=== PATIENT | male | born 1955 | race Caucasian/White ===

== ENCOUNTER → 2016-10-05 | Outpatient (CLI) | payer OTHER ==
--- NOTE | 2016-10-05 17:06 | CT ---
CT Scan of the Right Lower Extremity (Preop Right Knee Makoplasty) Clinical History: 60-year-old male with a history of right knee osteoarthritis, anticipating a Makop lasty. ICD-10 Diagnostic Code: M17.9. Technique: A multidetector unenhanced helical CT scan was obtained from the caudal aspect of the rig ht sacroiliac joint through the proximal right femoral diaphysis, subsequently from the distal right femoral diaphysis through the proximal 1/3rd tibial diaphysis, and then from the distal tibial and fi bular diaphyses through the right hindfoot. Images of the right hip are reformatted at 2.50-mm incre ments, the right knee at 0.625-mm increments, and of the right ankle at 2.50-mm increments. Parasagi ttal and paracoronal reconstructed images of the right knee were obtained. The DFOV is 32 cm. Image s are evaluated in soft tissue and bone windows. Comparison Studies: MR imaging of the right knee dated September 21, 2013, and CT imaging of the pelvi s dated April 17, 2012. Findings: CT Scan of the Right Pelvis: The femoral head is well-seated within the acetabulum. There are some implant radiation seeds at the level of the prostate gland. CT Scan of the Right Knee: There is a moderate-sized suprapatellar joint effusion. There is moderat e-to-severe medial femoral-tibial compartment narrowing, with some subchondral sclerosis present. De generative osteophytes are noted. There is some mild patellofemoral joint space narrowing seen both medially and laterally, with some peripheral patellar degenerative spurs. There is a punctate loose osteochondral body seen on series 4, image 72, just above the medial tibial plateau. CT Scan of the Right Ankle: Age-appropriate change. Impression: [id number] medial femoral-tibial compartment degenerative osteoarthrosis, with a moderate-sized suprapatellar joint effusion.
== END ==
LOC: FIMAGING 15:26
PROVIDERS: ATTEND Orthopaedic Surgery
DX: M17.11 Unilateral primary osteoarthritis, right knee (principal); M25.461 Effusion, right knee

== ENCOUNTER 2016-10-21 06:00 | Observation (INO) | payer OTHER ==
[~2016-10-21 06:00] MED LIST: ACETAMINOPHEN 325 MG TAB PO ONE; CEFAZOLIN 2 GM/DEXTR 100 ML IV ONE; CHLORHEXIDINE GLUC HIBICLENS 118 ML BTL TP ONE; DEXAMETHASONE 4 MG/ML VIAL IVP ONE; FAMOTIDINE 20 MG TAB PO ONE; ROPI/epiNEPH/KETOROLAC JOINT COCKTAIL IU ONE; TRANEXAMIC ACID 3,000 MG in NS 50 ML IRR ONE
[2016-10-21] MEDS ORDERED: LIDOCAINE 1% 5 ML SDV ID PRN (06:30)
[2016-10-21] MEDS ORDERED: LR 1,000 ML IV ONE (06:30)
[2016-10-21] MEDS ORDERED: ACETAMINOPHEN 325 MG TAB ONE (06:37)
[2016-10-21] MEDS ORDERED: TRANEXAMIC ACID 3,000 MG/50 ML BAG IRR ONE (06:54)
[2016-10-21] MEDS ORDERED: VANCOMYCIN 1 GM VIAL IV ONE (06:54)
[2016-10-21] MEDS ORDERED: SKIN ADHESIVE (DERMABOND) 1 EACH TP ONE (06:54)
[2016-10-21] MEDS ORDERED: MIDAZOLAM 2 MG/2 ML VIAL ONE (07:54)
[2016-10-21] MEDS ORDERED: fentaNYL 100 MCG/2 ML INJ ONE (07:57)
[2016-10-21] MEDS ORDERED: PROPOFOL/EMULSION 500 MG/50 ML BOTTLE IV ONE (07:58)
[2016-10-21] MEDS ORDERED: LIDOCAINE 2% 100 MG/5 ML SYR IVP ONE (08:19)
[2016-10-21] MEDS ORDERED: ROPIVACAINE HCL 150 MG/30 ML INJ ONE (08:34)
[2016-10-21] MEDS ORDERED: clonIDINE 1 MG/10 ML VIAL EP ONE (08:35)
[2016-10-21] MEDS ORDERED: ONDANSETRON 4 MG/2 ML VIAL IVP PRN (09:27)
[2016-10-21] MEDS ORDERED: BISACODYL 10 MG SUPP PR PRN (09:27)
[2016-10-21] MEDS ORDERED: DIPHENOXYLATE/ATROPINE LOMOTIL 1 TAB PO PRN (09:27)
[2016-10-21] MEDS ORDERED: PROMETHAZINE HCL 25 MG SUPPR PR PRN (09:27)
[2016-10-21] MEDS ORDERED: diphenhydrAMINE 25 MG CAP PO PRN (09:27)
[2016-10-21] MEDS ORDERED: POLYETHYLENE GLYCOL 3350 17 GM PKT PO PRN (09:27)
[2016-10-21] MEDS ORDERED: CYCLOBENZAPRINE 10 MG TAB PO PRN (09:27)
[2016-10-21] MEDS ORDERED: TEMAZEPAM 15 MG CAP PO PRN (09:27)
[2016-10-21] MEDS ORDERED: ONDANSETRON DISINTEGRATING 4 MG TAB PO PRN (09:27)
[2016-10-21] MEDS ORDERED: MAGNESIUM HYDROXIDE 30 ML UDCUP PO PRN (09:27)
[2016-10-21] MEDS ORDERED: PROMETHAZINE HCL 25 MG/ML INJ IVP PRN (09:27)
[2016-10-21] MEDS ORDERED: PHARMACY PAIN CONSULT 1 EA MISC PRN (09:27)
[2016-10-21] MEDS ORDERED: METOCLOPRAMIDE 10 MG/2 ML VIAL IVP PRN (09:27)
[2016-10-21] MEDS ORDERED: LACTULOSE 20 GM/30 ML UDCUP PO PRN (09:27)
--- NOTE | 2016-10-21 09:28 | POSTOPPROG ---
Post Op Note Date of Operation: 10/21/16 Surgeon: Tarun Morris Landscape Supervisor: carter morris Anesthesiologist: dr. moss Anesthesia: Spinal, Other (Specify) (adductor canal block) Pre-op Diagnosis: right knee OA Post-op Diagnosis: same Indication: right knee pain due to OA that failed conservative measures Procedure: R medial partial knee arthroplasty robot assisted Findings: severe medial knee OA Inf/Abcess present in the surg proc area at time of surgery?: No EBL: 50-100
[2016-10-21] MEDS ORDERED: LR 1,000 ML IV SCH (09:30)
[2016-10-21] MEDS: ACETAMINOPHEN 325 MG TAB PO SCH ×4 (13:09→23:20)
[2016-10-21] MEDS ORDERED: ceFAZolin 2 GM/DEXTROSE 100 ML IV SCH (14:00)
[2016-10-21] MEDS: ceFAZolin 2 GM in D5W 100 ML IV SCH ×2 (14:36→21:33)
[2016-10-21] MEDS ORDERED: WARFARIN SODIUM 5 MG TAB PO SCH (16:00)
[2016-10-21] MEDS: FAMOTIDINE 20 MG TAB PO SCH (19:57)
[2016-10-21] MEDS: SENNOSIDES/DOCUSATE SODIUM TAB PO SCH (19:58)
[2016-10-22] MEDS: oxyCODONE IR 5 MG TAB PO PRN ×3 (03:07→11:58)
[2016-10-22] MEDS: ACETAMINOPHEN 325 MG TAB PO SCH ×2 (05:13→11:59)
[2016-10-22 05:44] LABS: HEMATOCRIT 42.2 % (40.0-51.0); HEMOGLOBIN 14.7 g/dL (13.7-17.5)
[2016-10-22 06:00] LABS: INR 1.06 (0.83-1.16); PROTIME(PATIENT) 13.7 SEC (12.0-15.0)
[2016-10-22 08:00] VITALS: BP 114/67; PULSE 52; RESP 18; TEMP 98.5; O2SAT 96
[2016-10-22] MEDS: SENNOSIDES/DOCUSATE SODIUM TAB PO SCH (08:02)
[2016-10-22] MEDS: FAMOTIDINE 20 MG TAB PO SCH (08:03)
[2016-10-22] MEDS ORDERED: ENOXAPARIN 40 MG/0.4 ML SYR SC SCH (09:00)
--- NOTE | 2016-10-22 09:03 | SOAPPROG ---
SOAP Progress Note Assessment/Plan: Assessment: Patient is doing well POD 1 s/p R med MPL 1.Pain management: pain is well controlled on oral pain meds 2.VTE ppx: recommend coumadin and lovenox. Cont LAURA hose and SCD 3. d/c planning: d/c to home today pending release from PT. Plan: 10/22/16 09:02 10/22/16 09:03 Subjective: Derian is doing well this morning, denies SOB, chest pain and N/V. Objective: Vital Signs Temp Pulse Resp BP Pulse Ox 36.9 C 52 L 18 114/67 96 10/22/16 07:59 10/22/16 07:59 10/22/16 07:59 10/22/16 07:59 10/22/16 07:59 Laboratory Results 10/22/16 04:16 10/21/16 10/22/16 10/23/16 05:59 05:59 05:59 Intake Total 2738 Output Total 2440 Balance 298 PT 13.7 SEC (12.0-15.0) 10/22/16 04:16 INR 1.06 (0.83-1.16) 10/22/16 04:16 RLE: incision dressing is clean and dry, NVI, +pf/df ICD10 Worksheet Patient Problems: Problems Problem Status Onset Primary localized osteoarthritis of right knee Acute
--- NOTE | 2016-10-22 10:16 | GDS ---
[f rep st] DISCHARGE SUMMARY ADMISSION DIAGNOSIS: Right knee osteoarthritis. DISCHARGE DIAGNOSIS: Right knee osteoarthritis. PROCEDURE: Right partial knee arthroplasty, robot assisted. VTE PROPHYLAXIS: Coumadin and Lovenox recommended. BRIEF DESCRIPTION OF HOSPITAL STAY: Patient was admitted for an elective joint arthroplasty. The p atient tolerated the procedure well and has passed physical therapy. The patient was given appropri ate antibiotic prophylaxis and venous thromboembolism prophylaxis. The patient's pain was well cont rolled on oral pain medication, patient was holding down food, and had urinated. Decision was made to discharge the patient. The patient was given post-operative prescriptions pre-operatively. PLAN: Please follow up as scheduled in Dr. Laurent's office on November 10 at 11:30 a.m. /[id number]/MODL
--- NOTE | 2016-10-22 14:58 | GOP ---
[f rep st] OPERATIVE REPORT DATE OF OPERATION: 10/21/2016 SURGEON: Sonny Laurent MD FOUNDATION STAGE TEACHER: BIANCA Couch. ANESTHESIA: Spinal. PREOPERATIVE DIAGNOSIS: Right knee osteoarthritis. POSTOPERATIVE DIAGNOSIS: Right knee osteoarthritis. PROCEDURE PERFORMED: Right medial compartment partial knee replacement with computer navigation and robotic assist. FINDINGS/PATHOLOGY: Severe medial compartment osteoarthritis. INDICATIONS: This is a 60-year-old male, with progressive pain of the right knee unresponsive to conservative care. Risks and benefits of surgical intervention were explained in detail. DESCRIPTION OF PROCEDURE: The patient was brought to the operating room and placed on the table in supine position. Spinal anesthesia was induced without difficulty. A pneumatic tourniquet was applied about the right proximal thigh and the leg was prepped and draped in sterile fashion. Attention was turned first to the distal aspect of the right femur. At 3 cm proximal to the lateral rise of the femur, 2 percutaneous half pins were placed for fixation of the femoral array. In a similar fashion, 2 pins were placed anterolateral on the tibia for fixation of the tibial array. External land marking and registration of the hip center was performed without difficulty. After exsanguination by elevation, the tourniquet was inflated to 250 mmHg. Incision was made from the tibial tuberosity to the superior pole of the patella. Dissection was carried out through the subcutaneous tissue to the deep fascia using Bovie electrocautery for hemostasis. Medial parapatellar arthrotomy was carried out to the superior pole of the patella. The medial collateral ligament was elevated and the infrapatellar fat pad was resected. Internal femoral and tibial registration was carried out without difficulty and the femoral and tibial checkpoints were placed and verified for accuracy. Attention was turned to the femur. The foot print for the size 4 femoral component was cut with the 6 mm bur using the [employer] robotic system and verified for accuracy against the CT based plan. The hole was cut for the femoral post. In a similar fashion, the 6 mm bur was used to cut the foot print for the size 4 tibial component using the [employer] system and verified for accuracy against the CT based plan. Attention was turned to the posterior aspect of the knee and remnants of the medial meniscus were excised. The posterior capsule was injected with ropivacaine, epinephrine and Toradol. Trial reduction was carried out and there was excellent range of motion, alignment and stability using the size 4 femoral component and the size 4 tibial component, 4 x 8 mm polyethylene. All trials were then removed. The joint was thoroughly irrigated and carefully dried. One package of cement and 1 gram of vancomycin were mixed in the vacuum mixer and placed on the fixation surfaces of all components. The components were implanted and all excess cement was thoroughly removed. Implant placement was verified against the CT view plan and found to be excellent. The tourniquet was deflated and all bleeders were coagulated. The wound was thoroughly irrigated and closed using interrupted sutures of 2-0 Vicryl for the joint capsule. The subcu was closed with 3-0 Vicryl and the skin with 4-0 Monocryl. Dermabond and Steri-Strips were applied, followed by a compressive dressing. The patient was then moved from the operating room to the recovery room in good condition, having tolerated the procedure well. CASE CLASSIFICATION: Clean. /[id number]/MODL MTDD
== END 2016-10-22 12:11 | disposition home or self-care (01) ==
LOC: F3N 06:00 → INTOOBSV 06:00 → F3N 14:08
PROVIDERS: ADMIT Orthopaedic Surgery; ATTEND Orthopaedic Surgery
PROC: 8E0YXBZ Computer Assisted Procedure of Lower Extremity (ICD-10-PCS; principal; 2016-10-21 08:15)
PROC: 0SRC0JZ Replacement of Right Knee Joint with Synthetic Substitute, Open Approach (ICD-10-PCS; principal; 2016-10-21 08:15)
DX: M17.11 Unilateral primary osteoarthritis, right knee (principal); M25.561 Pain in right knee; G47.33 Obstructive sleep apnea (adult) (pediatric); Z79.01 Long term (current) use of anticoagulants
CPT/HCPCS: 20985; 27446; 73560; 97110; 97116; 97161; 97165; G0378; G8978; G8979; G8980; C1713; J0171; J0690; J0735; J1100; J1650; J1885; J2001; J2250; J2704; J2795; J3010; J3370

== ENCOUNTER 2017-09-20 11:09 | Emergency (ER) | payer OTHER ==
[2017-09-20 11:32] VITALS: TEMP 98.4; O2SAT 93
--- NOTE | 2017-09-20 12:15 | EDPHY ---
General - History Smoking Status: Never smoked Narrative: CHIEF COMPLAINT: Heart racing and fluttering HISTORY OF PRESENT ILLNESS: Patient complains of his heart "racing or fluttering." This is intermittent. Has been present for "quite a while" with increasing frequency over the past month. It tends to happen worse when he sits down to watch television when he goes to bed. It is currently not present. Is otherwise hard to predict. It is mild to moderate. No pain with this at any point in time. No shortness of breath but he does feel it racing. No nausea bowel. No diaphoresis. No trauma or injury. No syncope or lightheadedness. No dizziness. No evaluation thus far. No other associated complaints or modifying factors. REVIEW OF SYSTEMS: Ten systems reviewed and are negative unless otherwise noted in the HPI PCP: Dr. Dove SPECIALISTS: Urologist at [facility] for prostate cancer PAST MEDICAL HISTORY: Prostate cancer, osteoarthritis PAST SURGICAL HISTORY: Right knee surgery 2017 SOCIAL HISTORY: Nonsmoker. Occasional alcohol. No drug use. Works as an electrical injured air with [employer] FAMILY HISTORY: Noncontributory EXAMINATION General Appearance: Alert, no distress Head: normocephalic, atraumatic Eyes: Pupils equal and round, no conjunctival pallor or injection ENT, Mouth: Mucous membranes moist. airway patent Neck: Normal inspection, supple, non-tender Respiratory: Lungs are clear to auscultation. no wheezing, rhonchi or crackles. Cardiovascular: Regular rate and rhythm. no murmur Gastrointestinal: Abdomen is soft and nontender Back: non-tender, no bony abnormalities Neurological: A&O, nonfocal, normal gait Skin: Warm and dry, no rash no petechiae or purpura Extremities: Nontender, no pedal edema Psychiatric: Mood and affect normal DIFFERENTIAL DIAGNOSES: Including but not limited to paroxysmal flutter, paroxysmal fib, palpitation, dehydration, thyroid dysfunction MDM: 12:20 p.m. Intermittent flutter/palpitation sensation over the past month with increasing frequency recently. No chest pain. No shortness of breath. Vital signs are stable and he is asymptomatic at time of my examination. I have ordered EKG, laboratory studies, statistics tutor. He is resting comfortably in no acute distress. 12:30 p.m. EKG reveals sinus rhythm without ischemia. 12:58 p.m. Laboratory studies thus far negative. TSH and troponin are pending. No acute distress. 1:58 p.m. Laboratory studies are all negative. Chest x-ray is clear. No events on the statistics tutor during admission to the ED. I have re-evaluated the patient at this time. He is resting comfortably in no acute distress. No symptoms during his emergency department stay. 2:30 p.m. Patient has been evaluated by Dr. Corbin. We discussed discharge home with follow up with primary care physician and his established inventory control clerk Dr. Dee. We discussed ED precautions for worsening symptoms, lightheadedness, dizziness, syncope or any chest pain of any kind. Patient is in agreement with this plan. EKG interpretation: Dr. Corbin Sinus rhythm, rate 59 beats per minute. No ischemia SUPERVISION: Patient was evaluated and examined in conjunction with my secondary supervising physician as documented. We have both examined the patient. (Tad Che) I have evaluated and participated in the management of this patient. My co- signature indicates that I have reviewed this chart and that I agree with the findings and the plan of care as documented. My personal history and physical findings include: 61-year-old male with intermittent palpitations that have increasing in frequency. He feels as if his heart is racing or perhaps skipping a beat. He does not have chest pain. He is not short of breath. He is not currently experiencing these symptoms. On examination is heart is regular without murmur, rub, or gallop. Lungs are clear. Abdomen is soft and nontender. There is no jugular venous distension. I have reviewed his EKG and his labs. I do not think that he needs further emergency department evaluation. He is referred to primary care physician and Cardiology. Danger signs reviewed with him. (Julia Corbin) - Diagnostics EKG Interpretation: 12 lead EKG is interpreted in Trace master View by emergency department physician. (Julia Corbin) - Objective Vital Signs: Initial Vital Signs Temperature (C) 36.9 C 09/20/17 11:28 Heart Rate 71 09/20/17 11:28 Respiratory Rate 18 09/20/17 11:28 Blood Pressure 143/94 H 09/20/17 11:28 O2 Sat (%) 93 09/20/17 11:28 O2 Delivery Mode Room Air Allergies/Adverse Reactions: No Known Allergies Allergy (Verified 04/17/12 19:21) Home Medications: Medication Instructions Recorded Cholecalciferol Vit D3 [Vitamin D3 1,000 units PO DAILY 10/02/16 (*)] Fexofenadine HCl [Rhoda Allergy] 60 mg PO DAILY PRN 10/02/16 Herbals/Supplements -Info Only 1 ea PO DAILY 10/02/16 Triamcinolone Acetonide [Nasacort] 1 spray EACHNARE DAILY PRN 10/02/16 Acetaminophen [Tylenol 325mg (*)] 650 mg PO Q6HRS #0 tab 10/22/16 Enoxaparin [Lovenox 40 MG (*)] 40 mg SC DAILY #4 syr 10/22/16 Sennosides/Docusate Sodium 1 - 2 tab PO BID #0 tab 10/22/16 [Senokot-S] Warfarin Sodium [Coumadin 5MG (*)] 5 mg PO DAILY AT 4PM #20 tab 10/22/16 celeCOXIB [Celebrex (*)] 200 mg PO DAILY #0 cap 10/22/16 oxyCODONE IR [Oxycodone Ir (*)] 5 - 10 mg PO Q3HRS PRN #120 tab 10/22/16 Laboratory Results: Laboratory Results 09/20/17 12:33 09/20/17 12:33 Departure - Departure Disposition: Home, Routine, Self-Care Clinical Impression: Palpitations Condition: Good Instructions: Heart Palpitations (ED) Additional Instructions: 1. Contact your primary care physician and inventory control clerk as discussed 2. ED precautions for chest pain, worsening symptoms, lightheadedness or syncope Referrals: Angelina Dove MD [Primary Care Provider] - As per Instructions Nahun Dee MD [Medical Doctor] - As per Instructions
--- NOTE | 2017-09-20 12:30 | CPEKG ---
Heart Rate: 59 RR Interval: 1017 P-R Interval: 176 QRSD Interval: 88 QT Interval: 416 QTC Interval: 413 P [place]: 25 QRS [place]: 15 T Wave [place]: 34 EKG Severity - NORMAL ECG - EKG Impression: SINUS RHYTHM Electronically Signed By: Julia Corbin 20-Sep-2017 15:18:20
[2017-09-20 12:42] LABS: PLATELET COUNT 189 10^3/uL (150-400)
[2017-09-20 12:51] LABS: INR 0.98 (0.83-1.16); PROTIME(PATIENT) 13.2 SEC (12.0-15.0)
[2017-09-20 14:21] VITALS: BP 129/79; PULSE 70; RESP 16
== END 2017-09-20 14:45 | disposition home or self-care (01) ==
DX: R00.2 Palpitations (principal); Z79.01 Long term (current) use of anticoagulants; Z85.46 Personal history of malignant neoplasm of prostate

== ENCOUNTER 2017-12-20 | Emergency (ER) | payer OTHER ==
--- NOTE | 2017-12-20 00:12 | CPEKG ---
Heart Rate: 69 RR Interval: 870 P-R Interval: 184 QRSD Interval: 94 QT Interval: 380 QTC Interval: 407 P [place]: 35 QRS [place]: 16 T Wave [place]: 20 EKG Severity - NORMAL ECG - EKG Impression: SINUS RHYTHM Electronically Signed By: Sunshine Esposito 20-Dec-2017 07:10:28
[2017-12-20] MEDS ORDERED: ASPIRIN 81 MG CHEWABLE TAB PO ONE (00:14)
--- NOTE | 2017-12-20 00:22 | EDPHY ---
General - History Smoking Status: Never smoked Time Seen by Provider: 12/20/17 00:19 Narrative: CHIEF COMPLAINT: Chest pain HISTORY OF PRESENT ILLNESS: Patient complains of chest pain that started around 10:30 p.m.. This is right- sided chest pain. He was awake when this occurred. It is described as an aching pain that "was concerning." No worse with exertion. Seems to radiate only to the other right side of the chest. No shortness of breath, cough or fever. No abdominal pain. No trauma or recent travel or surgery. No history of venous thrombolic event. No coronary artery disease. He has had some palpitations with no definitive diagnosis. No catheterization or stress test since 2009. No other associated complaints or modifying factors. REVIEW OF SYSTEMS: Ten systems reviewed and are negative unless otherwise noted in the HPI PCP: Dr. Dove SPECIALISTS: Bull Chain Operator Dr. Dee PAST MEDICAL HISTORY: BPH, osteoarthritis, prostate cancer, nephrolithiasis, palpitations PAST SURGICAL HISTORY: Bilateral knee surgeries, prostate surgery SOCIAL HISTORY: Never smoker. Occasional alcohol use. No drug use. Works as a software release manager FAMILY HISTORY: Noncontributory EXAMINATION General Appearance: Alert, no distress. Well developed and well nourished. Well appearing. Head: normocephalic, atraumatic Eyes: Pupils equal and round, no conjunctival pallor or injection ENT, Mouth: Mucous membranes moist Neck: Normal inspection, supple, non-tender Respiratory: Lungs are clear to auscultation Cardiovascular: Regular rate and rhythm. No murmur. Gastrointestinal: Abdomen is soft and nontender Back: non-tender, no bony abnormalities Neurological: A&O, nonfocal, normal gait Skin: Warm and dry, no rash. No petechiae or purpura Extremities: Nontender, no pedal edema Psychiatric: Mood and affect normal DIFFERENTIAL DIAGNOSES: Including but not limited to ACS, acid reflux, peptic ulcer disease, PE, pneumonia, pleurisy, pneumonitis MDM: 12:20 a.m. Right-sided chest pain of 2 hr duration. His vital signs are within normal limits with exception of minimally decreased pulse oximetry at times. This is intermittent. The lowest value appreciated was 88% on room air. He then quickly improved to 94 to 95% on room air. He is in no acute distress. His EKG is unremarkable for ischemia. I have ordered D-dimer and he remains on a cardiac cath lab manager with chest x-ray pending. He is in no acute distress. 1:20 a.m. At this time I have discussed the case with Dr. Esposito. She will assume care the patient at this time. His initial troponin is negative. His D-dimer is negative. He is in no acute distress. Please see her note for final disposition. EKG interpretation: Dr. Esposito Normal sinus rhythm. No ischemia SUPERVISION: Patient was evaluated and examined in conjunction with my secondary supervising physician as documented. We have both examined the patient. (Tad Che) Repeat troponin was again negative. His oxygen saturations have remained normal. EKG was reviewed and shows a normal sinus rhythm with no ischemic changes. The patient had no recurrence of his chest pain. His heart score was calculated at 2. He feels well enough to go home and will be discharged with follow up with his primary outboard motorboat rigger Dr. Dee. The patient is happy with this plan and will return if his pain is worse in any way. (Sunshine Esposito) - Objective Vital Signs: Initial Vital Signs Temperature (C) 36.6 C 12/20/17 00:05 Heart Rate 77 12/20/17 00:05 Respiratory Rate 16 12/20/17 00:05 Blood Pressure 127/86 H 12/20/17 00:05 O2 Sat (%) 91 L 12/20/17 00:05 O2 Delivery Mode Room Air Allergies/Adverse Reactions: No Known Allergies Allergy (Verified 04/17/12 19:21) Home Medications: Medication Instructions Recorded Cholecalciferol Vit D3 [Vitamin D3 1,000 units PO DAILY 10/02/16 (*)] Fexofenadine HCl [Rhoda Allergy] 60 mg PO DAILY PRN 10/02/16 Herbals/Supplements -Info Only 1 ea PO DAILY 10/02/16 Triamcinolone Acetonide [Nasacort] 1 spray EACHNARE DAILY PRN 10/02/16 Acetaminophen [Tylenol 325mg (*)] 650 mg PO Q6HRS #0 tab 10/22/16 Enoxaparin [Lovenox 40 MG (*)] 40 mg SC DAILY #4 syr 10/22/16 Sennosides/Docusate Sodium 1 - 2 tab PO BID #0 tab 02/16/17 [Senokot-S] Warfarin Sodium [Coumadin 5MG (*)] 5 mg PO DAILY AT 4PM #20 tab 10/22/16 celeCOXIB [Celebrex (*)] 200 mg PO DAILY #0 cap 10/22/16 oxyCODONE IR [Oxycodone Ir (*)] 5 - 10 mg PO Q3HRS PRN #120 tab 10/22/16 Laboratory Results: Laboratory Results 12/20/17 00:17 12/20/17 00:17 12/20/17 12/20/17 12/20/17 02:40 00:17 00:17 WBC RBC Hgb Hct MCV MCH MCHC RDW Plt Count MPV Neut % (Auto) Lymph % (Auto) Stanton % (Auto) Eos % (Auto) Baso % (Auto) Nucleat RBC Rel Count Absolute Neuts (auto) Absolute Lymphs (auto) Absolute Monos (auto) Absolute Eos (auto) Absolute Basos (auto) Absolute Nucleated RBC Immature Gran % Immature Gran # D-Dimer < 0.27 ug/mLFEU ug/mLFEU (0.00-0.50) Sodium 143 mEq/L mEq/L (135-145) Potassium 4.2 mEq/L mEq/L (3.5-5.2) Chloride 105 mEq/L mEq/L (97-110) Carbon Dioxide 25 mEq/l mEq/l (22-31) Anion Gap 13 mEq/L mEq/L (8-16) BUN 28 mg/dL H mg/dL (7-23) Creatinine 1.0 mg/dL mg/dL (0.7-1.3) Estimated GFR > 60 Glucose 88 mg/dL mg/dL (70-100) Calcium 10.3 mg/dL mg/dL (8.5-10.4) Troponin I < 0.012 ng/mL ng/mL < 0.012 ng/mL ng/mL (0.000-0.034) (0.000-0.034) 12/20/17 00:17 WBC 7.69 10^3/uL 10^3/uL (3.80-9.50) RBC 5.05 10^6/uL 10^6/uL (4.40-6.38) Hgb 16.0 g/dL g/dL (13.7-17.5) Hct 45.9 % % (40.0-51.0) MCV 90.9 fL fL (81.5-99.8) MCH 31.7 pg pg (27.9-34.1) MCHC 34.9 g/dL g/dL (32.4-36.7) RDW 13.2 % % (11.5-15.2) Plt Count 221 10^3/uL 10^3/uL (150-400) MPV 10.9 fL fL (8.7-11.7) Neut % (Auto) 66.7 % % (39.3-74.2) Lymph % (Auto) 21.3 % % (15.0-45.0) Stanton % (Auto) 9.9 % % (4.5-13.0) Eos % (Auto) 1.4 % % (0.6-7.6) Baso % (Auto) 0.4 % % (0.3-1.7) Nucleat RBC Rel Count 0.0 % % (0.0-0.2) Absolute Neuts (auto) 5.13 10^3/uL 10^3/uL (1.70-6.50) Absolute Lymphs (auto) 1.64 10^3/uL 10^3/uL (1.00-3.00) Absolute Monos (auto) 0.76 10^3/uL 10^3/uL (0.30-0.80) Absolute Eos (auto) 0.11 10^3/uL 10^3/uL (0.03-0.40) Absolute Basos (auto) 0.03 10^3/uL 10^3/uL (0.02-0.10) Absolute Nucleated RBC 0.00 10^3/uL 10^3/uL (0-0.01) Immature Gran % 0.3 % % (0.0-1.1) Immature Gran # 0.02 10^3/uL 10^3/uL (0.00-0.10) D-Dimer Sodium Potassium Chloride Carbon Dioxide Anion Gap BUN Creatinine Estimated GFR Glucose Calcium Troponin I Medications Given: Discontinued Medications Aspirin (Aspirin) 243 mg PO EDNOW ONE Stop: 12/20/17 00:15 Last Admin: 12/20/17 00:17 Dose: 243 mg Departure - Departure Disposition: Home, Routine, Self-Care Clinical Impression: Chest pain Qualifiers: Chest pain type: unspecified Qualified Code(s): R07.9 - Chest pain, unspecified Condition: Good Instructions: Chest Pain (ED) Additional Instructions: Please return to the emergency department if your chest pain returns in any way. Otherwise, I would like for you to call Dr. Parry's office this morning to arrange for a follow-up appointment. You may need a stress test. Referrals: Angelina Dove MD [Primary Care Provider] - As per Instructions Nahun Dee MD [Medical Doctor] - As per Instructions
[2017-12-20 00:46] LABS: PLATELET COUNT 221 10^3/uL (150-400)
[2017-12-20 04:00] VITALS: BP 132/86
== END 2017-12-20 04:00 | disposition home or self-care (01) ==
DX: R07.9 Chest pain, unspecified (principal); Z79.01 Long term (current) use of anticoagulants; Z85.46 Personal history of malignant neoplasm of prostate

== ENCOUNTER → 2018-06-26 | Outpatient (CLI) | payer OTHER | LOC: FIMAGING 10:06 | PROVIDERS: ATTEND Orthopaedic Surgery | DX: Z01.818 Encounter for other preprocedural examination (principal); M17.12 Unilateral primary osteoarthritis, left knee ==

== ENCOUNTER 2018-07-15 08:08 | Observation (INO) | payer OTHER ==
--- NOTE | 2018-07-15 06:39 | PDHPUP ---
History & Physical Update H&P update statement: This history and physical update is based on an assessment of the patient which was completed after admission or registration (within 24 hours), but prior to the surgery/procedure. H&P update: H&P reviewed & patient examined, no change in patient's condition since H&P completed
[~2018-07-15 08:08] MED LIST changes: -ACETAMINOPHEN 325 MG TAB PO ONE; -CEFAZOLIN 2 GM/DEXTR 100 ML IV ONE; -CHLORHEXIDINE GLUC HIBICLENS 118 ML BTL TP ONE; -DEXAMETHASONE 4 MG/ML VIAL IVP ONE; -FAMOTIDINE 20 MG TAB PO ONE; -ROPI/epiNEPH/KETOROLAC JOINT COCKTAIL IU ONE; +ROPIVACAINE 0.2% 80 MG, EPINEPHrine 0.2 MG, KETOROLAC TROMETHAMINE 30 MG in SYRINGE 0 ML IU ONE; +TRANEXAMIC ACID 3,000 MG in NS (SYRINGE) 50 ML IRR ONE; -TRANEXAMIC ACID 3,000 MG in NS 50 ML IRR ONE
[2018-07-15] MEDS ORDERED: TRANEXAMIC ACID 3,000 MG/50 ML BAG IRR ONE (08:25)
[2018-07-15] MEDS ORDERED: VANCOMYCIN 1 GM VIAL ONE (08:42)
[2018-07-15] MEDS ORDERED: LR 1,000 ML IV ONE (08:43)
[2018-07-15] MEDS ORDERED: ceFAZolin 2 GM/DEXTROSE 100 ML IV ONE ×3 (08:51→21:03)
[2018-07-15] MEDS ORDERED: FAMOTIDINE 20 MG TAB PO ONE ×2 (08:51→21:03)
[2018-07-15] MEDS ORDERED: ACETAMINOPHEN 325 MG TAB PO ONE ×2 (08:51→21:03)
[2018-07-15] MEDS ORDERED: DEXAMETHASONE 4 MG/ML VIAL IVP ONE ×2 (08:51→21:03)
--- NOTE | 2018-07-15 08:55 | PDANEPAE ---
ANE Past Medical History - Cardiovascular History Hx Hypertension: No Hx Arrhythmias: No Hx Chest Pain: Yes Hx Coronary Artery / Peripheral Vascular Disease: No Hx CHF / Valvular Disease: No Hx Palpitations: Yes Cardiovascular History Comment: 2018 cardiac workup for chest pain and palpatations negative for actual cardiac issue - states symptoms have since subsided anyway - Pulmonary History Hx COPD: No Hx Asthma/Reactive Airway Disease: Yes Hx Recent Upper Respiratory Infection: No Hx Oxygen in Use at Home: No Hx Sleep Apnea: Yes Sleep Apnea Screening Result - Last Documented: Positive Pulmonary History Comment: allergy induced asthma many years ago. mild SHARI - uses nighttime mouthpiece only - Neurologic History Hx Cerebrovascular Accident: No Hx Seizures: No Hx Dementia: No - Endocrine History Hx Diabetes: No - Renal History Hx Renal Disorders: Yes Renal History Comment: kidney stones. prostate CA - Liver History Hx Hepatic Disorders: No - Neurological & Psychiatric Hx Hx Neurological and Psychiatric Disorders: No - Cancer History Hx Cancer: Yes Cancer History Comment: prostate CA - Congenital Disorder History Hx Congenital Disorders: No - GI History Hx Gastrointestinal Disorders: Yes Gastrointestinal History Comment: mild acid reflux - takes OTC PRN rarely - Other Health History Other Health History: bilateral hearing aids. wears glasses. occasional eczema. osteoarthritis - Chronic Pain History Chronic Pain: Yes (left knee) - Surgical History Prior Surgeries: right partial knee, 2017. kidney stone removal x2 ANE Review of Systems Review of Systems: - Exercise capacity METS (RN): 4 METS ANE Patient History - Allergies Allergies/Adverse Reactions: No Known Allergies Allergy (Verified 06/22/18 12:05) - Home Medications Home Medications: Fexofenadine HCl [Rhoda Allergy] 60 mg PO DAILY PRN 10/02/16 [Last Taken 2 Weeks Ago ~10/07/16] Herbals/Supplements -Info Only 1 ea PO DAILY 10/02/16 [Last Taken 2 Weeks Ago ~ 10/07/16] Calcium Carbonate [Oyster Shell Calcium 500 mg (*)] 500 mg PO DAILY 06/06/18 [ Last Taken Unknown] Dutasteride [Avodart 0.5 MG (*)] 0.5 mg PO DAILY 06/06/18 [Last Taken Unknown] Multivitamins [Multivitamin (*)] 1 each PO DAILY 06/06/18 [Last Taken Unknown] - Smoking Hx Smoking Status: Never smoked - Family Anes Hx Family Hx Anesthesia Complications: none ANE Labs/Vital Signs - Vital Signs Height: 181.61 cm Weight: 92.986 kg ANE Physical Exam - Airway Mallampati Score: Class 2 ANE Anesthesia Plan Anesthesia Plan: spinal Regional Anesthesia: adductor canal FNB
[2018-07-15] MEDS ORDERED: CEFAZOLIN 2 GM/DEXTROSE/100 ML BAG IV ONE (08:58)
[2018-07-15] MEDS ORDERED: MIDAZOLAM 2 MG/2 ML VIAL ONE (09:01)
[2018-07-15] MEDS ORDERED: PROPOFOL/EMULSION 500 MG/50 ML BOTTLE IV ONE (09:02)
[2018-07-15] MEDS ORDERED: fentaNYL 100 MCG/2 ML INJ ONE (09:02)
[2018-07-15] MEDS ORDERED: ROPIVACAINE HCL 150 MG/30 ML INJ ONE (09:05)
--- NOTE | 2018-07-15 10:49 | POSTOPPROG ---
Post Op Note Date of Operation: 07/15/18 Surgeon: Tarun Morris Medication Technician: carter morris Anesthesiologist: dr. de la paz Anesthesia: Spinal, Other (Specify) (adductor canal block) Pre-op Diagnosis: left knee OA Post-op Diagnosis: same Indication: left knee pain Procedure: L med MPL robot assisted Findings: severe medial knee OA Inf/Abcess present in the surg proc area at time of surgery?: No EBL: 50-100
[2018-07-15] MEDS ORDERED: BISACODYL 10 MG SUPP PR PRN (10:50)
[2018-07-15] MEDS ORDERED: DIPHENOXYLATE/ATROPINE LOMOTIL 1 TAB PO PRN (10:50)
[2018-07-15] MEDS ORDERED: ONDANSETRON DISINTEGRATING 4 MG TAB PO PRN (10:50)
[2018-07-15] MEDS ORDERED: PROMETHAZINE HCL 25 MG/ML INJ IVP PRN (10:50)
[2018-07-15] MEDS ORDERED: CYCLOBENZAPRINE 10 MG TAB PO PRN (10:50)
[2018-07-15] MEDS ORDERED: diphenhydrAMINE 25 MG CAP PO PRN (10:50)
[2018-07-15] MEDS ORDERED: ONDANSETRON 4 MG/2 ML VIAL IVP PRN ×2 (10:50→11:00)
[2018-07-15] MEDS ORDERED: PROMETHAZINE HCL 25 MG SUPPR PR PRN (10:50)
[2018-07-15] MEDS ORDERED: LACTULOSE 20 GM/30 ML UDCUP PO PRN (10:50)
[2018-07-15] MEDS ORDERED: TEMAZEPAM 15 MG CAP PO PRN (10:50)
[2018-07-15] MEDS ORDERED: POLYETHYLENE GLYCOL 3350 17 GM PKT PO PRN (10:50)
[2018-07-15] MEDS ORDERED: MAGNESIUM HYDROXIDE 30 ML UDCUP PO PRN (10:50)
[2018-07-15] MEDS ORDERED: METOCLOPRAMIDE 10 MG/2 ML VIAL IVP PRN (10:50)
[2018-07-15] MEDS ORDERED: NALOXONE HCL 0.4 MG/ML INJ IVP PRN (11:00)
[2018-07-15] MEDS ORDERED: LR 500 ML IV PRN (11:00)
[2018-07-15] MEDS ORDERED: fentaNYL 100 MCG/2 ML INJ IVP PRN (11:00)
[2018-07-15] MEDS ORDERED: LR 1,000 ML IV SCH (11:00)
[2018-07-15] MEDS ORDERED: PHENYLEPHRINE HCL 100 MCG/ML SYR IVP PRN (11:00)
--- NOTE | 2018-07-15 11:01 | POSTANESTH ---
Post Anesthetic Evaluation Cardiovascular Status: Normal, Stable Respiratory Status: Normal, Stable Level of Consciousness/Mental Status: Can Participate in Eval Pain Control: Adequate, Prn Tx Ordered Nausea/Vomiting Control: Adequate, Prn Tx Ordered Complications Possibly Related to Anesthesia: None Noted
[2018-07-15] MEDS ORDERED: BUPIVACAINE/DEXTROSE 7.5MG/ML 2 ML SPINAL AMP SP ONE (13:21)
[2018-07-15] MEDS: ACETAMINOPHEN 325 MG TAB PO SCH ×2 (14:11→17:03)
[2018-07-15] MEDS: ceFAZolin 2 GM/DEXTROSE 100 ML IV SCH (17:02)
[2018-07-15] MEDS: ASPIRIN 81 MG CHEWABLE TAB PO SCH (21:08)
[2018-07-15] MEDS: SENNOSIDES/DOCUSATE SODIUM TAB PO SCH (21:10)
[2018-07-15] MEDS: FAMOTIDINE 20 MG TAB PO SCH (21:11)
[2018-07-15] MEDS: oxyCODONE IR 5 MG TAB PO PRN (21:12)
[2018-07-16] MEDS: ACETAMINOPHEN 325 MG TAB PO SCH ×2 (00:46→05:54)
[2018-07-16] MEDS: ceFAZolin 2 GM/DEXTROSE 100 ML IV SCH (00:46)
[2018-07-16] MEDS: oxyCODONE IR 5 MG TAB PO PRN (06:00)
[2018-07-16 07:54] VITALS: BP 107/62
[2018-07-16] MEDS ORDERED: DUTASTERIDE 0.5 MG CAP PO SCH (09:00)
[2018-07-16] MEDS: ASPIRIN 81 MG CHEWABLE TAB PO SCH (09:11)
[2018-07-16] MEDS: SENNOSIDES/DOCUSATE SODIUM TAB PO SCH (09:11)
[2018-07-16] MEDS: FAMOTIDINE 20 MG TAB PO SCH (09:11)
--- NOTE | 2018-07-16 11:42 | SOAPPROG ---
SOAP Progress Note Assessment/Plan: Assessment: Patient is doing well POD 1 s/p L med MPL Pain management: pain is well controlled on oral pain meds. VTE ppx: recommend aspirin daily for 3 weeks, cont LAURA and SCDs D/c planning: d/c to home today pending release from PT postop urinary retention: straight cath'd yesterday, resolved today Plan: 07/16/18 11:39 07/16/18 11:41 Subjective: patient is doing well, denies SOB, chest pain and N/v Objective: Vital Signs Temp Pulse Resp BP Pulse Ox 36.6 C 57 L 15 107/62 95 07/16/18 07:54 07/16/18 07:54 07/16/18 07:54 07/16/18 07:54 07/16/18 07:54 Laboratory Results 07/16/18 04:37 07/15/18 07/16/18 07/17/18 05:59 05:59 05:59 Intake Total 3492 Output Total 1655 Balance 1837 LLE; incision dressing is cleanand dry, NVI, +pf/df ICD10 Worksheet Patient Problems: Problems Problem Status Onset Primary localized osteoarthritis of left knee Acute Primary localized osteoarthritis of right knee Acute
--- NOTE | 2018-07-17 13:01 | GOP ---
DATE OF OPERATION: 07/15/2018 SURGEON: Sonny Laurent MD TOBACCO BUYER: Bryanna Laurent, BIANCA. ANESTHESIA: Spinal. ANESTHESIOLOGIST: Dr. Laurent. PREOPERATIVE DIAGNOSIS: Left knee osteoarthritis. POSTOPERATIVE DIAGNOSIS: Left knee osteoarthritis. PROCEDURE PERFORMED: HINA uni-knee. Left medial compartment partial knee replacement with computer navigation, robotic assist. FINDINGS: ESTIMATED BLOOD LOSS: 30 cc. INDICATIONS: This is a 62-year old gentleman with progressive pain of the left knee unresponsive to conservative care. Risks and benefits of surgical intervention were explained in detail. DESCRIPTION OF PROCEDURE: The patient was brought to the operating room and placed on the table in s upine position. Spinal anesthesia was induced without difficulty. A pneumatic tourniquet was applie d about the left proximal thigh and the leg was prepped and draped in sterile fashion. Attention was turned first to the distal aspect of the left femur. At 3 cm proximal to the lateral rise of the fe mur, 2 percutaneous half pins were placed for fixation of the femoral array. In a similar fashion, 2 pins were placed anterolateral on the tibia for fixation of the tibial array. External land marking and registration of the hip center was performed without difficulty. After exsanguination by elevation, the tourniquet was inflated to 50 mmHg. Incision was made from the tibial tuberosity to the superior pole of the patella. Dissection was car ried out through the subcutaneous tissue to the deep fascia using Bovie electrocautery for hemostasis . Medial parapatellar arthrotomy was carried out to the superior pole of the patella. The medial co llateral ligament was elevated and the infrapatellar fat pad was resected. Internal femoral and tibi al registration was carried out without difficulty and the femoral and tibial checkpoints were placed and verified for accuracy. Attention was turned to the femur. The foot print for the size 4 femoral component was cut with the 6 mm bur using the [employer] robotic system and verified for accuracy against the CT based plan. The hole was cut for the femoral post. In a similar fashion, the 6 mm bur was used to cut the foot print for t he size 4 tibial component using the [employer] system and verified for accuracy against the CT based plan. Attention was turned to the posterior aspect of the knee and remnants of the medial meniscus were exc ised. The posterior capsule was injected with ropivacaine, epinephrine and Toradol. Trial reduction was carried out and there was excellent range of motion, alignment and stability using the size 4 fe moral component and the size 4 tibial component. All trials were then removed. The joint was thoroughly irrigated and carefully dried. One package o f cement and 1 gram of vancomycin were mixed in the vacuum mixer and placed on the fixation surfaces of all components. The components were implanted and all excess cement was thoroughly removed. Impla nt placement was verified against the CT view plan and found to be excellent. The tourniquet was deflated and all bleeders were coagulated. The wound was thoroughly irrigated and closed using interrupted sutures of 2-0 Vicryl for the joint capsule. The subcu was closed with 3-0 Vicryl and the skin with 4-0 Monocryl. Dermabond and Steri-Strips were applied, followed by a compr essive dressing. The patient was then moved from the operating room to the recovery room in good con dition, having tolerated the procedure well. CASE CLASSIFICATION: Clean. /[id number]/MODL
--- NOTE | 2018-07-22 05:53 | GDS ---
ADMISSION DIAGNOSIS: Left knee osteoarthritis. DISCHARGE DIAGNOSIS: Left knee osteoarthritis. PROCEDURE: Left partial knee arthroplasty, medial compartment. VTE PROPHYLAXIS: Recommend aspirin 81 mg twice daily for 4 weeks. BRIEF DESCRIPTION OF HOSPITAL STAY: Patient was admitted for an elective joint arthroplasty. The pa adriannt tolerated the procedure well and has passed physical therapy. The patient was given appropriat e antibiotic prophylaxis and venous thromboembolism prophylaxis. The patient's pain was well control led on oral pain medication, patient was holding down food, and had urinated. Decision was made to d ischarge the patient. The patient was given post-operative prescriptions pre-operatively. PLAN: To follow up as scheduled with Dr. Laurent's office August 04 at 11 a.m. /[id number]/MODL
== END 2018-07-16 12:09 | disposition home or self-care (01) ==
LOC: F3E 08:08 → F3N 14:03
PROVIDERS: ADMIT Orthopaedic Surgery; ATTEND Orthopaedic Surgery
PROC: 8E0YXCZ Robotic Assisted Procedure of Lower Extremity (ICD-10-PCS; principal; 2018-07-15 10:00)
PROC: 0SRD0J9 Replacement of Left Knee Joint with Synthetic Substitute, Cemented, Open Approach (ICD-10-PCS; principal; 2018-07-15 10:00)
PROC: 8E0YXBZ Computer Assisted Procedure of Lower Extremity (ICD-10-PCS; principal; 2018-07-15 10:00)
DX: M17.12 Unilateral primary osteoarthritis, left knee (principal); R33.9 Retention of urine, unspecified; J45.909 Unspecified asthma, uncomplicated; G47.33 Obstructive sleep apnea (adult) (pediatric); Z85.46 Personal history of malignant neoplasm of prostate; Z87.442 Personal history of urinary calculi
CPT/HCPCS: 20985; 27446; 73560; 97116; 97161; 97530; G0378; G8978; G8979; G8980; C1713; J0171; J0690; J1100; J1885; J2250; J2704; J2795; J3010; J3370